=== PATIENT | female | born 1980 | race Caucasian/White ===

== ENCOUNTER 2020-01-10 03:57 | Day surgery (SDC) | payer BC ==
[2020-01-10] VITALS (13 sets, daily range): BP systolic 92–120; BP diastolic 56–92
[~2020-01-10] VITALS: Ht 170.2 cm; Wt 120.5 kg
[2020-01-10 04:17] LABS: BILIRUBIN,URINE 2+ (NEGATIVE); CLARITY,URINE SL CLOUDY; COLOR,URINE AMBER; GLUCOSE, URINE (UA) NEGATIVE (NEGATIVE); KETONES,URINE TRACE (NEGATIVE); LEUKOCYTE ESTERASE ,URINE TRACE (NEGATIVE); NITRITE,URINE NEGATIVE (NEGATIVE); PH,URINE 5.5 (5-9); PROTEIN,URINE NEGATIVE (NEGATIVE)
[2020-01-10] MEDS ORDERED: KETOROLAC 30 MG/ML VIAL IVP STA (04:26)
[2020-01-10] MEDS ORDERED: LACTATED RINGERS 1,000 ML IV ONE (04:26)
[2020-01-10] MEDS ORDERED: ONDANSETRON 4 MG/2 ML (SDV) Z0FRAN IVP ONE (04:30)
--- NOTE | 2020-01-10 04:33 | ED Abdominal Pain ---
General Chief Complaint: Abdominal/GI Problems Stated Complaint: ABD PAIN Nursing Triage Note: intermittant rlq abdominal pain since 01/09/2020. reports constant x2hrs. diarrhea Sepsis Screen: No Definite Risk Source of Information: Patient History of Present Illness Date Seen by Provider: Jan 10, 2020 Time Seen by Provider: 04:10 Initial Comments PT ARRIVES VIA POV FROM HOME STATES SHE WOKE UP AROUND 0100 WITH RLQ PAIN NO RADIATION OF PAIN PAIN IS WORSE WITH MOVEMENTS OR LAYING FLAT PAIN IS CONSTANT, VARIES IN INTENSITY C/O NAUSEA WITH PAIN, NO VOMITING HAD DIARRHEA X 1 YESTERDAY AND ONCE AFTER SHE WOKE AT 0100 NO URINARY SYMPTOMS NO FEVER HAS HAD DECREASED APPETITE SINCE Tuesday01/08/20, AND LAST FOOD INTAKE WAS NOON ON Tuesday01/09/20. STILL DRINKING FLUIDS, BUT NOT MUCH USUAL STATES THE PAIN IS SIMILAR TO THE PAIN SHE HAD WITH RUPTURED LEFT ECTOPIC IN 2005 HAS NOT TAKEN ANYTHING FOR PAIN LMP 12/20/19--1 WEEK EARLY. PT IS AB2--1 RUPTURED ECTOPIC AND 1 FIRST TRIMESTER MISCARRIAGE. PCP: DR. MATHIAS Allergies and Home Medications Allergies Coded Allergies: No Known Drug Allergies (Unverified , 01/10/20) Home Medications Cetirizine HCl 10 Mg Tablet, 10 MG PO HS, (Reported) Cholecalciferol (Vitamin D3) 125 Mcg Capsule, 125 MCG PO HS, (Reported) Escitalopram Oxalate 20 Mg Tablet, 30 MG PO HS, (Reported) TAKES 1 & OF A 20MG TAB Fluticasone Propionate 9.9 Ml [place].susp, 2 SPRAY NS HS, (Reported) 2 SPRAYS PER NOSTRIL DAILY X 2 DAYS THEN 1 SPRAY DAILY Hydrocodone/Acetaminophen 1 Each Tablet, 1 EACH PO Q4H Prescribed by: SARAH SHETH on 01/10/20 1502 Ibuprofen 200 Mg Capsule, 400 MG PO Q6H PRN for PAIN-MILD (1-4), (Reported) Levetiracetam 500 Mg Tablet, 1,000 MG PO HS, (Reported) TAKES 2 (500MG) TABS Patient Home Medication List Home Medication List Reviewed: Yes Review of Systems Review of Systems Constitutional: no symptoms reported; No chills, No fever EENTM: No Symptoms Reported Respiratory: No Symptoms Reported Cardiovascular: No Symptoms Reported Gastrointestinal: See HPI, Abdominal Pain, Diarrhea, Nausea, Poor Appetite, Poor Fluid Intake; Denies Vomiting Genitourinary: No Symptoms Reported; Denies Burning, Denies Frequency, Denies Flank Pain, Denies Incontinence, Denies Pain, Denies Urgency Musculoskeletal: no symptoms reported; No back pain Skin: no symptoms reported Psychiatric/Neurological: No Symptoms Reported Endocrine: No Symptoms Reported Hematologic/Lymphatic: No Symptoms Reported Past Uyvbeuu-Vumdzf-Hbgazu Hx Past Med/Social Hx: Reviewed and Corrections made Patient Social History Alcohol Use: Rarely Uses Recreational Drug Use: No Smoking Status: Never a Smoker 2nd Hand Smoke Exposure: No Recent Foreign Travel: No Contact w/Someone Who Travel: No Recent Infectious Disease Expo: No Recent Hopitalizations: No Physical Abuse: No Sexual Abuse: No Mistreated: No Fear: No Immunizations Up To Date Tetanus Booster (TDap): Less than 5yrs Seasonal Allergies Seasonal Allergies: Yes Past Medical History Surgeries: Yes (LEFT RUPTURED ECTOPIC SURGERY--OPEN LAPAROTOMY) Gallbladder Respiratory: No Cardiac: No Neurological: Yes (LAST SEIZURE WAS AT AGE 16--ON KEPPRA DAILY) Seizure Disorder : No Last Menstrual Period: Dec 20, 2019 Hx : 4 Hx Para: 2 Hx Total # of Abortions (Sp): 2 (1 RUPTURED LEFT ECTOPIC--OPEN LAPAROTOMY, 1 FIRST TRIMESTER MISCARRIAGE--NO D&C) Genitourinary: No Gastrointestinal: No Musculoskeletal: No Endocrine: No (OBESITY) HEENT: No Cancer: No Psychosocial: Yes Anxiety, Depression Integumentary: No Blood Disorders: No Physical Exam Vital Signs Vital Signs - First Documented 01/10/20 04:05 Temp 36.3 Pulse 106 Resp 18 B/P (MAP) 145/102 (116) Pulse Ox 97 O2 Delivery Room Air Capillary Refill : Less Than 3 Seconds Height/Weight/BMI Height: '" Weight: lbs. oz. kg; 41.00 BMI Method: General Appearance: WD/WN, no apparent distress, obese, other (MOVES SLOWLY, SLIGHTLY BENT AT WAIST) Respiratory: normal breath sounds, no respiratory distress, no accessory muscle use Cardiovascular: regular rate, rhythm, no murmur Gastrointestinal: normal bowel sounds, soft, no organomegaly, no pulsatile ma ss; No distended, No guarding; rebound, tenderness (VERY TENDER IN RLQ, MILD TENDERNESS IN SUPRAPUBIC AND EPIGASTRIC/PERIUMBILICAL AREA. 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, no motor/sensory deficits, alert, normal mood/affect, oriented x 3 Skin: normal color, warm/dry; No rash Progress/Results/Core Measures Results/Orders Lab Results Laboratory Tests Test 01/10/20 04:08 01/10/20 04:15 01/10/20 06:00 Range/Units Urine Color LAZARO H Urine Clarity SL CLOUDY Urine pH 5.5 5-9 Urine Specific [place] 1.025 H 1.016-1.022 Urine Protein NEGATIVE NEGATIVE Urine Glucose (UA) NEGATIVE NEGATIVE Urine Ketones TRACE H NEGATIVE Urine Nitrite NEGATIVE NEGATIVE Urine Bilirubin 2+ H NEGATIVE Urine Urobilinogen 1.0 < = 1.0 MG/DL Urine Leukocyte Esterase TRACE H NEGATIVE Urine RBC (Auto) NEGATIVE NEGATIVE Urine RBC NONE /HPF Urine WBC 0-2 /HPF Urine Squamous Epithelial Cells 0-2 /HPF Urine Crystals NONE /LPF Urine Bacteria TRACE /HPF Urine Casts NONE /LPF Urine Mucus SMALL H /LPF Urine Culture Indicated NO White Blood Count 15.8 H 4.3-11.0 10^3/uL Red Blood Count 4.79 3.80-5.11 10^6/uL Hemoglobin 14.3 11.5-16.0 g/dL Hematocrit 43 35-52 % Mean Corpuscular Volume 91 80-99 fL Mean Corpuscular Hemoglobin 30 25-34 pg Mean Corpuscular Hemoglobin Concent 33 32-36 g/dL Red Cell Distribution Width 12.6 10.0-14.5 % Platelet Count 288 130-400 10^3/uL Mean Platelet Volume 10.9 9.0-12.2 fL Immature Granulocyte % (Auto) 0 % Neutrophils (%) (Auto) 84 H 42-75 % Lymphocytes (%) (Auto) 9 L 12-44 % Monocytes (%) (Auto) 6 0-12 % Eosinophils (%) (Auto) 0 0-10 % Basophils (%) (Auto) 0 0-10 % Neutrophils # (Auto) 13.3 H 1.8-7.8 10^3/uL Lymphocytes # (Auto) 1.4 1.0-4.0 10^3/uL Monocytes # (Auto) 1.0 0.0-1.0 10^3/uL Eosinophils # (Auto) 0.1 0.0-0.3 10^3/uL Basophils # (Auto) 0.0 0.0-0.1 10^3/uL Immature Granulocyte # (Auto) 0.1 0.0-0.1 10^3/uL Neutrophils % (Manual) 81 % Lymphocytes % (Manual) 11 % Monocytes % (Manual) 7 % Myelocytes % 1 % Blood Morphology Comment NORMAL Sodium Level 139 135-145 MMOL/L Potassium Level 3.5 L 3.6-5.0 MMOL/L Chloride Level 103 98-107 MMOL/L Carbon Dioxide Level 23 21-32 MMOL/L Anion Gap 13 5-14 MMOL/L Blood Urea Nitrogen 13 7-18 MG/DL Creatinine 0.84 0.60-1.30 MG/DL Estimat Glomerular Filtration Rate > 60 BUN/Creatinine Ratio 15 Glucose Level 106 H 70-105 MG/DL Calcium Level 9.4 8.5-10.1 MG/DL Corrected Calcium 9.1 8.5-10.1 MG/DL Total Bilirubin 0.7 0.1-1.0 MG/DL Aspartate Amino Transf (AST/SGOT) 19 5-34 U/L Alanine Aminotransferase (ALT/SGPT) 19 0-55 U/L Alkaline Phosphatase 79 40-136 U/L Total Protein 8.1 6.4-8.2 GM/DL Albumin 4.4 3.2-4.5 GM/DL Amylase Level 38 25-125 U/L Lipase 22 8-78 U/L Coronavirus (COVID-19)(PCR) Negative Negative Coronavirus 2019 ([facility]) Negative Negative My Orders Orders - NEERU DELGADILLO DO Urine Bedside (01/10/20 04:10) Ua Culture If Indicated (01/10/20 04:10) Ed Iv/Invasive Line Start (01/10/20 04:11) Amylase (01/10/20 04:11) Cbc With Automated Diff (01/10/20 04:11) Comprehensive Metabolic Panel (01/10/20 04:11) Lipase (01/10/20 04:11) Ed Iv/Invasive Line Start (01/10/20 04:26) Lactated Ringers (Lr 1000 Ml Iv Solution (01/10/20 04:26) Ondansetron Injection (Zofran Injectio (01/10/20 04:30) Ketorolac Injection (Toradol Injection) (01/10/20 04:26) Ct Abd/Pelv W (Appendicitis) (01/10/20 04:42) Acute Abd Series (01/10/20 04:42) Manual Differential (01/10/20 04:15) Iohexol Injection (Omnipaque 350 Mg/Ml 1 (01/10/20 05:45) Ns (Ivpb) (Sodium Chloride 0.9% Ivpb Bag (01/10/20 05:45) Ciprofloxacin Iv 400mg/200ml (Cipro Iv S (01/10/20 06:00) Medications Given in ED Vital Signs/I&O 01/10/20 04:05 Temp 36.3 Pulse 106 Resp 18 B/P (MAP) 145/102 (116) Pulse Ox 97 O2 Delivery Room Air Blood Pressure Mean: 116 Progress Progress Note : Progress Note GIVEN TORADOL AND ZOFRAN--NAUSEA RELIEVED, SOME IMPROVEMENT IN PAIN, BUT PT DECLINES FURTHER MEDICATIONS FOR PAIN AT THIS TIME. NO DETERIORATION IN PT'S CONDITION DURING ER STAY PT NOW REPORTS JUST PRIOR TO ADMIT, THAT HER SON TESTED + FOR COVID-19 LAST Tuesday01/02/20, AND HOUSE IS STILL UNDER QUARANTINE AT THIS TIME. PT DENIES ANY COVID-RELATED SYMPTOMS Diagnostic Imaging Comments ABDOMEN XRAYS--NO ACUTE PROCESS, PENDING RADIOLOGIST REVIEW CT ABDOMEN/PELVIS--+ APPENDICITIS, WITHOUT EVIDENCE OF ABSCESS OR PERFORATION, PER [facility] RADIOLOGIST VIA PHONE AT 0550 Reviewed: Reviewed by Me, Discussed w/Radiologist Departure Communication (Admissions) [id number]--SPOKE WITH DR. SHETH, SURGEON DIGITAL MARKETING MANAGER. ACCEPTS PT FOR ADMIT, ADVISES TO START CIPRO + FLAGYL AND WILL TAKE PT TO SURGERY LATER TODAY. Impression Primary Impression: Appendicitis Additional Impression: Close exposure to COVID-19 virus Disposition: ADMITTED INPATIENT Condition: Improved Admissions Decision to Admit Reason: Admit from ER (General) Decision to Admit/Date: Jan 10, 2020 Time/Decision to Admit Time: 05:50 Departure-Patient Inst. Referrals: MAE MATHIAS MD (PCP/Family) Primary Care Physician Scripts Hydrocodone/Acetaminophen (Hydrocodone-Acetamin 7.5-325) 1 Each Tablet 1 EACH PO Q4H, #35 TAB Prov: SARAH SHETH MD 01/10/20 NEERU DELGADILLO DO Jan 10, 2020 04:33
[2020-01-10 04:38] LABS: WBC,URINE 0-2 /HPF
[2020-01-10 04:39] LABS: BACTERIA,URINE TRACE /HPF; SQUAMOUS EPITHELIAL CELL,UR 0-2 /HPF
[2020-01-10 04:41] LABS: BASOPHILS % (AUTO) 0 % (0-10); EOSINOPHILS # (AUTO) 0.1 10^3/uL (0.0-0.3); EOSINOPHILS % (AUTO) 0 % (0-10); HEMATOCRIT 43 % (35-52); HEMOGLOBIN 14.3 g/dL (11.5-16.0); LYMPHOCYTES # (AUTO) 1.4 10^3/uL (1.0-4.0); LYMPHOCYTES % (AUTO) 9 % (12-44); MEAN CORPUSCULAR HEMOGLOBIN 30 pg (25-34); MEAN CORPUSCULAR HGB CONC 33 g/dL (32-36); MEAN CORPUSCULAR VOLUME 91 fL (80-99); MEAN PLATELET VOLUME 10.9 fL (9.0-12.2); MONOCYTES % (AUTO) 6 % (0-12); NEUTROPHILS # (AUTO) 13.3 10^3/uL (1.8-7.8); NEUTROPHILS % (AUTO) 84 % (42-75); PLATELET COUNT 288 10^3/uL (130-400); WHITE BLOOD COUNT 15.8 10^3/uL (4.3-11.0)
[2020-01-10 04:47] LABS: ALBUMIN 4.4 GM/DL (3.2-4.5); CHLORIDE 103 MMOL/L (98-107); POTASSIUM 3.5 MMOL/L (3.6-5.0); SODIUM 139 MMOL/L (135-145)
[2020-01-10 04:48] LABS: AMYLASE 38 U/L (25-125); CALCIUM 9.4 MG/DL (8.5-10.1)
[2020-01-10 04:49] LABS: GLUCOSE 106 MG/DL (70-105)
[2020-01-10 04:50] LABS: TOTAL PROTEIN 8.1 GM/DL (6.4-8.2)
[2020-01-10 04:51] LABS: BILIRUBIN,TOTAL 0.7 MG/DL (0.1-1.0); CARBON DIOXIDE 23 MMOL/L (21-32)
[2020-01-10 04:53] LABS: ALKALINE PHOSPHATASE 79 U/L (40-136); CREATININE SERUM 0.84 MG/DL (0.60-1.30); GFR ESTIMATED > 60
[2020-01-10 04:54] LABS: BUN/CREATININE RATIO 15
[2020-01-10 04:56] LABS: ALANINE AMINOTRANSFERASE 19 U/L (0-55)
[2020-01-10 04:57] LABS: LIPASE 22 U/L (8-78)
[2020-01-10 05:22] LABS: LYMPHOCYTES % (MANUAL) 11 %; MONOCYTES % (MANUAL) 7 %; MYELOCYTES % 1 %; NEUTROPHILS % (MANUAL) 81 %; RBC MORPH NORMAL
[2020-01-10] MEDS ORDERED: IOHEXOL 350 MG/ML 100 ML (OMNIPAQUE 350) VIAL IV ONE (05:45)
[2020-01-10] MEDS ORDERED: NS 100 ML (IVPB) BAG IV ONE (05:45)
[2020-01-10] MEDS ORDERED: CIPROFLOXACIN IV 400MG/200ML 200 ML IV ONE (06:00)
--- NOTE | 2020-01-10 06:28 | Diagnostic Imaging Report ---
PROCEDURE: CT abdomen and pelvis with contrast, rule out appendicitis. TECHNIQUE: Multiple contiguous axial images were obtained through the abdomen and pelvis after the administration of intravenous contrast. All CT scans use one or more of the following dose optimizing techniques: automated exposure control, MA and/or KvP adjustment based on patient size and exam type or iterative reconstruction. INDICATION: Right lower quadrant abdominal pain. There is no previous study available at this time for comparison. FINDINGS: No focal hepatic or splenic abnormality is identified. Gallbladder is surgically absent. There is no evidence of pancreatic or adrenal gland abnormality. Kidneys are also unremarkable in appearance and there is no evidence of abdominal free fluid. The appendix is dilated measuring up to 1 cm in diameter. There is also mild edema and/or inflammation surrounding the appendix without evidence of periappendiceal fluid collection. Unopacified bladder is unremarkable. There is no evidence of organized fluid collection or pneumoperitoneum. IMPRESSION: Findings are compatible with early appendicitis without evidence of perforation or periappendiceal abscess. Dictated by: Dictated on workstation # [id number]
--- NOTE | 2020-01-10 06:30 | NUR ---
LISSET WOOTEN admitted to room 413-1, with an admitting diagnosis of appendicitis, on 01/10/20 from ED via wheelchair, accompanied by staff.LISSET WOOTEN introduced to surroundings, call light, bed controls, phone, TV, temperature control, lights, meal times, smoking policy, visitor policy, side rail policy, bathrooms and showers. Patient Rights given to patient in the handbook. LISSET WOOTEN verbalizes understanding that [facility] is not responsible for the loss or damage to any personal effects or valuables that are kept in the patients posession during their hospitalization. LISSET WOOTEN verbalizes understanding of Interdisciplinary Patient Education. Patient and/or family were informed about the Rapid Response Team and its purpose.
[2020-01-10] MEDS ORDERED: D5 1/2 NS W/KCL 20 MEQ/L 1,000 ML IV ONE (06:36)
[2020-01-10] MEDS ORDERED: CATHETER FLUSH 10 ML SYR IV PRN (07:00)
[2020-01-10] MEDS ORDERED: fentaNYL INJECTION 100 MCG/2 ML AMP IV PRN (07:00)
[2020-01-10] MEDS ORDERED: ONDANSETRON 4 MG/2 ML (SDV) Z0FRAN IV PRN (07:00)
[2020-01-10] MEDS ORDERED: D5 1/2 NS W/KCL 20 MEQ/L 1,000 ML IV SCH (07:00)
[2020-01-10] MEDS ORDERED: FLU QUADRIvalent (3YOA+) 60 mcg/0.5 ml 2020-21 (AFLURIA) IM ONE (07:15)
[2020-01-10] MEDS: metroNIDAZOLE 500 MG/100 ML IVPB (PRE-MIX) IV SCH ×2 (08:13→12:49)
--- NOTE | 2020-01-10 08:26 | Diagnostic Imaging Report ---
INDICATION: abd pain COMPARISON: None FINDINGS: Supine and upright views of the abdomen show a nondistended bowel gas pattern. No abnormal air fluid levels or free intraperitoneal air is seen. No abnormal extraosseous calcifications are seen. Bony and soft tissue structures are within normal limits. No organomegaly is identified. Accompanying upright chest shows normal heart size and pulmonary vascularity. The lungs are well aerated and clear. The mediastinum is normal in appearance. IMPRESSION: 1. No bowel obstruction or free air. 2. Normal chest. No pneumonia or pulmonary edema. Dictated by: Dictated on workstation # [id number]
[2020-01-10] MEDS ORDERED: PROMETHAZINE INJ 25 MG/ML (PHENERGAN) AMP IVP PRN (09:15)
--- NOTE | 2020-01-10 09:36 | Progress Note-Pre Operative ---
Pre-Operative Progress Note H&P Reviewed The H&P was reviewed, patient examined and no changes noted. Date Seen by Provider: Jan 10, 2020 Time Seen by Provider: 08:50 Date H&P Reviewed: Jan 10, 2020 Time H&P Reviewed: 09:36 Pre-Operative Diagnosis: Acute Appendicitis SHIRA LABOY APRN Jan 10, 2020 09:36
--- NOTE | 2020-01-10 09:51 | HISTORY AND PHYSICAL ---
DATE OF SERVICE: ATTENDING PHYSICIAN: Dr. Varela. HISTORY OF PRESENT ILLNESS The patient is a 40-year-old female, who presented to the Emergency Department early this morning with complaints of abdominal pain. She reports that for the last 2 to 3 days, she has had some mild abdominal pain, initially thought that this was a strained muscle due to some exercise; however, this had persisted. She did report she has had a decreased appetite and reports that last night she had increasing abdominal pain and reports that before she went to bed went to the bathroom and had diarrhea as well as nausea and vomiting. She reports that the pain was constant and more in the middle of her abdomen. However, she was awoken around 1 o'clock this morning with pain more in the right lower abdominal quadrant. She reports that the pain is better with standing, pain is worse with lying flat or movements. She denied any fever or chills. While in the emergency room, she was found to have a leukocytosis of 15.[address] scan, which was consistent with an appendicitis. PAST MEDICAL HISTORY: Epilepsy, anxiety. PAST SURGICAL HISTORY: Laparoscopic cholecystectomy, open laparotomy for left ruptured ectopic . ALLERGIES: No known drug allergies. MEDICATIONS: Keppra, Lexapro. SOCIAL HISTORY: Negative for smoke. Negative for alcohol. FAMILY HISTORY: Father, stroke, heart attack. Mother, diabetes. Grandparent with colon cancer. VITAL SIGNS: Temperature 36.4 degrees Celsius, pulse 103, respirations 18, blood pressure 92/65, pulse ox 93% on room air. REVIEW OF SYSTEMS: Well-nourished female, in no acute distress. She is not experiencing any shortness of breath or difficulty breathing. No chest pain, palpitations, diaphoresis. She does report episodes of nausea and vomiting as well as mid abdominal pain that does radiate towards the right lower abdominal quadrant and is constant. She also reported episode of diarrhea, but no constipation. No red blood per rectum. No dark tarry stools. No fever or chills. No recent inadvertent weight loss. All other review of systems negative. PHYSICAL EXAMINATION: CHEST: Clear. Good breath sounds bilaterally. HEART: Regular, no murmurs. EXTREMITIES: No lower extremity edema. Negative Homans sign. HEENT: No scleral icterus. NECK: No cervical lymphadenopathy. ABDOMEN: Soft, nondistended. There is some pain with moderate palpation in the umbilical region as well as right lower abdominal quadrant. No peritoneal signs. SKIN: Warm, dry and pink. NEUROLOGIC: Awake, alert and oriented x3. ASSESSMENT AND PLAN: A 40-year-old female with acute appendicitis. At this time, we will admit the patient and start her on IV fluids as well as pain and nausea medication and antibiotics. We will have her remain n.p.o. and schedule her for a laparoscopic appendectomy. The patient verbalized understanding of instructions and agrees to this plan. Job ID: [id number] DocumentID: [id number] Dictated Date: 01/10/2020 09:35:32 Operating Room Scheduler Date: 01/10/2020 09:50:42 Dictated By: SHIRA LABOY APRN
[2020-01-10] MEDS ORDERED: LEVE500T6 PO (10:37)
[2020-01-10] MEDS ORDERED: CETI10TA49 PO (10:37)
[2020-01-10] MEDS ORDERED: FLUT9.9S NS (10:37)
[2020-01-10] MEDS ORDERED: IBUP-2185 PO (10:37)
[2020-01-10] MEDS ORDERED: ESCI20TA45 PO (10:37)
[2020-01-10] MEDS ORDERED: CHOL500050 PO (10:37)
--- NOTE | 2020-01-10 10:42 | NUR ---
SPOKE WITH THE PT (I CALLED HER ROOM PHONE) AND WENT THRU THE EXT MED HISTORY TO COMPLETE THE MED REC ALL PRESCRIPTIONS ARE LISTED ON THE EXT MED HISTORY AND PT WAS ABLE TO TELL ME HOW/WHEN SHE TAKES EACH- PTS INFORMATION MATCHED THE EXT MED HISTORY OTC MEDS: ZYRTEC HS FLONASE HS VIT D3 HS IBUPROFEN PRN PT INDICATES SHE TAKES ALL HER MEDICATIONS HS
[2020-01-10] MEDS ORDERED: LACTATED RINGERS 1,000 ML IV PRN (11:38)
[2020-01-10] MEDS ORDERED: BUP/EPI 0.25% 1:200,000 (MARCAINE) 30 ML VIAL ONE (13:04)
[2020-01-10] MEDS ORDERED: MIDAZOLAM 2 MG/2 ML (VERSED) VIAL ONE (13:15)
[2020-01-10] MEDS ORDERED: fentaNYL INJECTION 100 MCG/2 ML AMP ONE (13:15)
[2020-01-10] MEDS ORDERED: proPOfol 200 MG/20 ML (DIPRIVAN) VIAL IV ONE (14:27)
[2020-01-10] MEDS ORDERED: ROCURONIUM 10 MG/ML 5 ML SYRINGE IV ONE (14:27)
[2020-01-10] MEDS ORDERED: ONDANSETRON 4 MG/2 ML (SDV) Z0FRAN ONE (14:27)
[2020-01-10] MEDS ORDERED: LIDOCAINE PF 2% 5 ML (XYLOCAINE) VIAL ONE (14:27)
[2020-01-10] MEDS ORDERED: SEVOFLURANE (ULTANE) 15 ML INHAL SOLN ONE ×3 (14:27→14:51)
[2020-01-10] MEDS ORDERED: BSS 15 ML ONE (14:28)
[2020-01-10] MEDS ORDERED: ceFAZolin INJECTION 1,000 MG ONE ×2 (14:33)
[2020-01-10] MEDS ORDERED: GLYCOPYRROLATE 0.2 MG/ML (ROBINUL) 2 ML VIAL ONE (14:55)
[2020-01-10] MEDS ORDERED: NEOSTIGMINE 3 MG/3 ML VIAL ONE (14:55)
--- NOTE | 2020-01-10 15:01 | Progress Note-Post Operative ---
Post-Operative Progess Note Surgeon (s)/Architecture Instructor (s) Surgeon SARAH SHETH MD Architecture Instructor: wesly banda SOFT IRON INSPECTOR Pre-Operative Diagnosis Acute Appendicitis Post-Operative Diagnosis same Procedure & Operative Findings Date of Procedure 01/10/20 Procedure Performed/Findings laparoscopic appendectomy Anesthesia Type get Estimated Blood Loss Estimated blood loss (mL): minimal Specimens/Packing Specimens Removed appendix SARAH SHETH MD Jan 10, 2020 15:01
[2020-01-10] MEDS ORDERED: HYDR-3817 PO (15:02)
--- NOTE | 2020-01-10 15:03 | Discharge Inst-Surgical ---
D/C Lap Instructions-MERYL New, Converted, or Re-Newed RX: RX on Chart Follow Up Appt in 2 weeks Activity as tolerated No driving for 24 hours No [address] while on pain medications Incentive Spirometry use every 2 hours while awake Regular Diet Symptoms to Report: Fever over 101 degree F, Nausea/Vomiting Infection Signs and Symptoms to report: Increased redness, Foul odor of wound, Increased drainage Bathing instructions: May shower Operative Area Clean/Dry; Keep incision clean/dry If any problems/questions: Contact your physician or go to Emergency Room SARAH SHETH MD Jan 10, 2020 15:02
[2020-01-10] MEDS ORDERED: morphine INJ 10 MG/ML 1ML (SYR OR VIAL) ONE (15:21)
--- NOTE | 2020-01-10 15:25 | NUR ---
negative for covid, Dr Elias notified, [facility] dc
[2020-01-10] MEDS ORDERED: HYDROmorphone 2 MG/ML VIAL (DILAUDID) ONE (15:28)
--- NOTE | 2020-01-10 16:15 | NUR ---
RETURNED FROM SURGERY, ALERT, NO C/O PAIN OR NAUSEA AT THIS TIME, O2 ON PER NC AT 3 LITERS, LAP SITES TIMES THREE, NO BLEEDING FROM SITES, OPEN TO AIR, ABD SOFT, CALL LIGHT WITHIN REACH.
[2020-01-10] MEDS ORDERED: morphine INJ 10 MG/ML 1ML (SYR OR VIAL) IVP ONE (16:30)
[2020-01-10] MEDS ORDERED: HYDROmorphone 2 MG/ML VIAL (DILAUDID) IV ONE (16:30)
[2020-01-10] MEDS ORDERED: ONDANSETRON 4 MG/2 ML (SDV) Z0FRAN IVP PRN (16:30)
--- NOTE | 2020-01-10 17:00 | NUR ---
WALKED IN MORSE, AREN WELL, VOIDED WITHOUT DIFFICULTY, TAKING PO FLUIDS
[2020-01-10] MEDS ORDERED: CIPROFLOXACIN 400 MG/D5W 200 ML (PRE-MIX) IV SCH (18:00)
--- NOTE | 2020-01-11 00:33 | OPERATIVE REPORT ---
DATE OF SERVICE: 01/10/2020 ATTENDING PRIMARY CARE PHYSICIAN: Anna Varela MD PREOPERATIVE DIAGNOSIS: Acute appendicitis. POSTOPERATIVE DIAGNOSIS: Acute appendicitis. No perforation. PROCEDURE: Laparoscopic appendectomy. SURGEON: Sarah Sheth MD FINANCIAL INVESTIGATOR: Dada aBshir APRN ANESTHESIA: General endotracheal. ESTIMATED BLOOD LOSS: Minimal. FINDINGS: Inflammation of the appendix, no perforation. Uterus and ovaries appeared normal. DISPOSITION: The patient tolerated the procedure well. INDICATIONS: The patient is a 40-year-old female who presented to the Emergency Department early this morning with a 2-day history of mild abdominal pain, which was mid abdominal, however, became more localized towards the right lower abdominal quadrant. She reports that she had worsening pain as well as episodes of diarrhea as well as nausea and vomiting last night. She does not report any fever nor chills. A CT scan was performed, which did show an inflamed appendix as well as elevated white count consistent with an acute appendicitis. DESCRIPTION OF PROCEDURE: The patient was brought to the operating room, laid supine on the table. After adequate IV pain and sedative medications and general endotracheal intubation, the abdomen was prepped and draped in standard surgical fashion. A 0.5% Marcaine with epinephrine was then used to anesthetize the overlying skin in the left upper abdominal quadrant and a transverse skin incision made using a 15 blade. An 0 silk suture was applied to the medial aspect of incision for retraction and a Veress needle inserted with a low opening pressure of 0 mmHg and the abdomen was then insufflated to 15 mmHg pressure. The Veress needle removed and a 5 mm XL trocar placed followed by a 5 mm 45-degree angle laparoscope visualizing the peritoneal cavity. A 4-quadrant abdominal exploration was performed. The patient was placed in Trendelenburg position as well as plane right side up, left side down. There was an inflamed appendix with no perforation. The uterus and ovaries appeared normal. Small bowel appeared normal. Under direct visualization, we then proceeded to place a supraumbilical 10 mm port after the skin and peritoneal lining were anesthetized using 0.5% Marcaine with epinephrine and a transverse skin incision made using a 15 blade. In a similar manner, a suprapubic 5 mm port was placed. The appendix was then retracted towards the anterior abdominal wall and a window created between the base of the appendix and the mesoappendix using a [place] dissector. The appendix was then stapled and transected at the cecal base using a ALINE 45 mm stapler with a 2.5 mm thickness load. The mesoappendix was then stapled and transected with the same stapler with a 2.0 mm thickness reload with visualization of good hemostasis. The appendix was removed through the 10 mm port site using an EndoCatch bag. The 10 mm port site fascia and peritoneum were then closed under direct visualization using a Yogi-Tova device and 0 Vicryl suture. The abdomen was desufflated and remaining ports removed. All skin incisions were closed using 4-0 Monocryl running subcuticular sutures. Wounds were then cleaned and covered with Dermabond. The patient tolerated the procedure well. We will start IV normal pain medication as well as a clear liquid diet. Once she is tolerating clears, has good pain control with oral pain medications, ambulating well, we will discharge her home. Job ID: [id number] DocumentID: [id number] Dictated Date: 01/10/2020 15:09:47 Feather Mixer Date: 01/11/2020 00:32:42 Dictated By: SARAH SHETH MD
--- NOTE | 2020-01-11 12:52 | Anesthesia-General Post-Op ---
General Patient Condition Mental Status/LOC: Same as Preop Cardiovascular: Satisfactory Nausea/Vomiting: Absent Respiratory: Satisfactory Pain: Controlled Complications: Absent Post Op Complications Complications None Follow Up Care/Instructions Patient Instructions None needed. Anesthesia/Patient Condition Patient Condition Patient is already discharged to home but was doing well, no complaints, stable vital signs, no apparent adverse anesthesia problems prior to discharge. JANICE LOPEZ DO Jan 11, 2020 12:52
== END 2020-01-10 17:55 | disposition home or self-care (01) ==
LOC: EDUNIT# 03:57 → ER 04:02 → 4TH 06:00 → SDC 06:00 → 4TH 06:00 → UNDOADMIN 06:00 → 4TH 06:28 → UNDODISIN 17:55 → SDC 17:55
PROVIDERS: ATTEND Surgery
DX: K35.80 Unspecified acute appendicitis (principal); Z68.41 Body mass index [BMI] 40.0-44.9, adult; G40.909 Epilepsy, unspecified, not intractable, without status epilepticus; E66.9 Obesity, unspecified; F41.9 Anxiety disorder, unspecified; F32.9 Major depressive disorder, single episode, unspecified; Z20.828 Contact with and (suspected) exposure to other viral communicable diseases
CPT/HCPCS: 44970; 74022; 74177; 80053; 81000; 82150; 83690; 84703; 85007; 85027; 87081; 88304; 96361; 96365; 96375; 99284; U0002; 36415; 87635

== ENCOUNTER → 2020-04-30 | Outpatient (CLI) | payer BC ==
[~2020-04-30] MED LIST: CETI10TA49 PO; CHOL500050 PO; ESCI20TA45 PO; FLUT9.9S NS; HYDR-3817 PO; IBUP-2185 PO; LEVE500T6 PO
--- NOTE | 2020-04-30 19:41 | NUR ---
Notified of positive COVID test.
== END ==
LOC: LABNPT 08:22
PROVIDERS: ATTEND Family Medicine
DX: U07.1 COVID-19 (principal)
CPT/HCPCS: 87635

== ENCOUNTER → 2021-01-06 | Outpatient (CLI) | payer BC ==
[~2021-01-06] MED LIST changes: +ESCI20TA39 PO; -ESCI20TA45 PO
--- NOTE | 2021-01-06 11:03 | Diagnostic Imaging Report ---
Indication: Screening. The current study was also evaluated with a Computer Aided Detection (CAD) system. 3-D Tomographic imaging was also performed. No prior examinations are available for comparison since baseline exam FINDINGS: There are scattered bibasilar densities. There is no dominant mass, spiculated lesion or suspicious calcifications identified. There are a few benign type calcifications. The skin, nipple and axilla are unremarkable. IMPRESSION: Category 2 benign findings ACR BI-RADS Category 2: Benign findings. Result letter will be mailed to the patient. Note: At least 10% of breast cancer is not imaged by mammography. Dictated by: Dictated on workstation # [id number]
== END ==
LOC: RAD 09:30
PROVIDERS: ATTEND Surgery
DX: Z12.31 Encounter for screening mammogram for malignant neoplasm of breast (principal)
CPT/HCPCS: 77063; 77067